=== PATIENT | female | born 1985 | race Caucasian/White ===

== ENCOUNTER 2019-11-09 10:55 | Emergency (ER) | payer BC, SELFPAY ==
[2019-11-09 11:04] VITALS: BP 146/79; PULSE 92; RESP 20; TEMP 36.9; O2SAT 98
--- NOTE | 2019-11-09 12:09 | ED.SOB ---
HPI - SOB/Dyspnea General Chief Complaint: Shortness of Breath/Dyspnea Stated Complaint: sore throat and asthma Time Seen by Provider: 11/09/19 12:01 Source: patient Mode of arrival: ambulatory Limitations: no limitations History of Present Illness HPI Narrative: 34-year-old female who presents to [facility] care with complaints of 2-week duration of flare of asthma with increased shortness of breath and wheezing. Patient states that she has been using her inhaler and nebs at home with minimal length of improvement in breathing and request steroids. Patient states it would be 1 week before she can get an appointment with her PCP. Patient also states complaints of burning and soreness to her throat for the past 2 days, denies any fevers or acute difficulty with swallowing. Patient denies any fever, chills or sweats. MD elicited complaint: shortness of breath and asthma attack Pertinent past history: asthma and other (tobacco abuse) Onset (ago): week(s) (2 days sore throat 2 weeks of flare of asthma) Context: other (flare of asthma) Timing: progressively worsening Severity: moderate Exacerbating factors: exertion and coughing Relieving factors: rest, bronchodilators and other Known history of: asthma Associated symptoms: cough, wheezing and other (Sore throat) Treatment prior to arrival: bronchodilator Related Data Home Medications Medication Instructions Recorded Confirmed albuterol sulfate 2.5 mg INHALATION PRN PRN 11/09/19 11/09/19 albuterol sulfate [Ventolin HFA] 2 puff INHALATION Q4H 11/09/19 11/09/19 budesonide-formoterol [Symbicort] 2 puff INHALATION BID 11/09/19 11/09/19 lisinopril 10 mg PO DAILY 11/09/19 11/09/19 medroxyprogesterone 150 mg IM USEASDIRECTD 11/09/19 11/09/19 montelukast 10 mg PO DAILY 11/09/19 11/09/19 Allergies Allergy/AdvReac Type Severity Reaction Status Date / Time No Known Allergies Allergy Verified 11/09/19 11:57 Review of Systems Review of Systems: Narrative: CONSTITUTIONAL: Denies fever, chills, or sweats. EYES: Denies visual changes, redness, or discharge. ENT: Denies rhinorrhea, congestion, positive sore throat, denies otalgia. CARDIOVASCULAR: Denies chest pain, palpitations, or edema, cough RESPIRATORY: Positive cough or dyspnea. GASTROINTESTINAL: Denies abdominal pain, nausea, vomiting, or diarrhea. GENITOURINARY: Denies dysuria or hematuria. SKIN: Denies rash or itching. MUSCULOSKELETAL: Denies back pain, joint pain, or myalgia. NEUROLOGIC: Denies headache, numbness, or weakness. PSYCHIATRIC: Denies anxiety or depression. All systems reviewed & are unremarkable except as noted in HPI and below PMFSH Past Medical History Medical History (Updated 11/09/19 @ 18:52 by Candi Peck NP) Asthma FHx: cholecystectomy Social History Social History (Updated 11/09/19 @ 18:51 by Candi Peck NP) Smoking packs per day: 0.5 Smoking cigarettes per day: 10.0 Smoking status: Current every day smoker Tobacco type: cigarettes Living arrangements: with family Gender identity (if verbalized by the patient): Female Comments At time of signature, agree with nursing past medical, surgical, social history. There is no relevant family history pertinent to the presenting complaint Exam Narrative: Exam Narrative: GENERAL: Well-appearing, well-nourished, and in no acute distress. HEAD: Normocephalic, atraumatic. EYES: PERRLA and EOMI. ENT: Nares clear, no rhinorrhea or epistaxis. Mucous membranes moist.TM's normal with good light reflex, throat red with tonsils enlarged NECK: Supple, no lymphadenopathy CHEST: decreased breath sounds on auscultation. No acute respiratory distress.used inhaler prior to arrival no wheezing noted. HEART: Regular rate and rhythm. No murmur heard. Normal peripheral pulses. ABDOMEN: Soft, nontender, nondistended, normal active bowel sounds. EXTREMITIES: Normal range of motion. No edema. SKIN: Warm, dry, no rash. NEURO: No focal deficits. Alert and or
== END 2019-11-09 12:25 | disposition home or self-care (01) ==
PROVIDERS: Emergency Provider Registered Nurse
DX: J45.901 Unspecified asthma with (acute) exacerbation (principal); J02.9 Acute pharyngitis, unspecified; F17.210 Nicotine dependence, cigarettes, uncomplicated
CPT/HCPCS: 87081; 87880; 99213; G0463